=== PATIENT | male | born 1975 | race Caucasian/White ===

== ENCOUNTER 2016-05-05 21:25 | Emergency (ER) | payer BC, OTHER ==
[~2016-05-05] VITALS: Ht 180.3 cm; Wt 85.3 kg
[2016-05-05 21:27] VITALS: Ht 180.3 cm; Wt 85.3 kg
[2016-05-05] MEDS ORDERED: KETOROLAC TROMETHAMINE 30 MG/ML VIAL IV STA (21:44)
[2016-05-05] MEDS ORDERED: SODIUM CHLORIDE 0.9% 1000ML 2,000 ML IV STA (21:44)
[2016-05-05] MEDS ORDERED: BENZONATATE 100MG CAP PO ONE (21:45)
[2016-05-05] MEDS ORDERED: ACETAMINOPHEN 325 MG TAB PO STA (21:45)
--- NOTE | 2016-05-05 21:58 | DIAGNOSTIC IMAGING REPORT ---
CHEST ONE VIEW PORTABLE CLINICAL HISTORY: Cough and fever. COMPARISON STUDY: No previous studies for comparison. FINDINGS: Lung volumes are normal. Lungs are clear. There is no pneumothorax or pleural effusion. Cardiac size is normal. Mediastinal contours are normal. Pulmonary vascularity is normal. IMPRESSION: No acute cardiopulmonary findings. Electronically signed by: Daniel Gamble M.D. 05/05/2016 9:56 PM Dictated Date/Time: 05/05/2016 9:56 PM
[2016-05-05 22:34] LABS: BUN/CREATININE RATIO 11.1 (10-20); CALCIUM 8.5 mg/dl (8.5-10.1); CREATININE 1.2 mg/dl (0.60-1.40)
[2016-05-05] MEDS ORDERED: OSELTAMIVIR PHOSPHATE 75 MG CAP PO STA (22:53)
[2016-05-05 23:01] LABS: BASO % 0.3 %; BASO ABS # 0.02 K/uL (0-0.2); COMPLETE YES; EOS % 0.2 %; HEMATOCRIT 43.1 % (42-52); LYMPH % 12.5 %; LYMPH ABS # 0.72 K/uL (1.2-3.4); MEAN CELL VOLUME 85.9 fL (80-100); MEAN CORPUSCULAR HEMOGLOBIN 29.3 pg (25-34); MEAN CORPUSCULAR HGB CONC 34.1 g/dl (32-36); MEAN PLATELET VOLUME 12.4 fL (7.4-10.4); MONO % 14.4 %; NEUT % 72.6 %; PLATELET COUNT 98 K/uL (130-400); PLT ESTIMATE DECREASED; RED BLOOD COUNT 5.02 M/uL (4.7-6.1); WHITE BLOOD COUNT 5.76 K/uL (4.8-10.8)
[2016-05-05] MEDS ORDERED: NF406 PO (23:16)
[2016-05-05 23:27] VITALS: BP 127/77; PULSE 94; TEMP 38; O2SAT 96
--- NOTE | 2016-05-06 00:29 | EMERGENCY ROOM VISIT NOTE ---
History Report prepared by Rosie: David Carroll Under the Supervision of: Dr. Casey Sosa D.O. First contact with patient: 21:33 Chief Complaint: ILLNESS Stated Complaint: FEVER,CHILLS,STIFFNESS History of Present Illness The patient is a 40 year old male who presents to the Emergency Room with complaints of a persistent fever beginning one day prior to arrival. He currently rates his discomfort as a 5/10 in severity. The patient associates chills, body aches, dry cough, sorethroat, runny nose, and back soreness with today's symptoms. He states his fevers have been as high as 102.5 F, in which, he has been taking Tylenol Cold. his last dose of Tylenol was in the afternoon. The patient notes he may have been around sick contacts. He states he still has his spleen. Pt denies headache, change in vision, chest pain, shortness of breath, rash, abdominal pain, earaches, nausea, vomiting, diarrhea, pain with urination, and melena. Source of History: patient Onset: one day [employer] Position: other (global) Symptom Intensity: 5/10 Quality: other (fever) Timing: other (persistent) Associated Symptoms: + back pain (soreness), + chills, + cough (dry), + fevers, + sorethroat Note: Associated symptoms: body aches, runny nose. Review of Systems See HPI for pertinent positives & negatives. A total of 10 systems reviewed and were otherwise negative. Past Medical & Surgical Medical Problems: (1) No pertinent past medical history Family History Patient reports no known family medical history. Social History Smoking Status: Never Smoker Marital Status: in relationship Occupation Status: employed Current/Historical Medications Scheduled Oseltamivir Phosphate (Tamiflu), 1 CAP PO BID Allergies Coded Allergies: No Known Allergies (Unverified , 05/05/16) Physical Exam Vital Signs Date Time Temp Pulse Resp B/P Pulse Ox O2 Delivery O2 Flow Rate FiO2 05/05/16 23:27 38.0 94 20 127/77 96 05/05/16 22:41 38.0 93 137/74 96 Room Air 05/05/16 21:27 38.6 122 20 129/74 96 Room Air Physical Exam GENERAL: laying in bed, disheveled, mild distress, dry cough EYE EXAM: normal conjunctiva EARS: TMs clear bilaterally OROPHARYNX: no exudate, no erythema, lips, buccal mucosa, and tongue normal and mucous membranes are moist NECK: supple, no nuchal rigidity, no adenopathy, non-tender LUNGS: Faint wheezing in bilateral bases. Normal chest wall mechanics HEART: Tachycardic, no murmurs, S1 normal and S2 normal ABDOMEN: abdomen soft, non-tender, normo-active bowel sounds, no masses, no rebound or guarding. BACK: Diffuse bilateral paraspinal tenderness. Back is symmetrical on inspection and there is no deformity SKIN: no rashes and no bruising UPPER EXTREMITIES: upper extremities are grossly normal. LOWER EXTREMITIES: No pitting edema. Calves equal bilaterally. NEURO EXAM: Normal sensorium, cranial nerves II-XII grossly intact, normal speech, no gross weakness of arms, no gross weakness of legs. Medical Decision & Procedures ER Provider Diagnostic Interpretation: Xray results per the radiologist and my interpretation. Other results have been interpreted by the radiologist and reviewed by me. CHEST ONE VIEW PORTABLE CLINICAL HISTORY: Cough and fever. COMPARISON STUDY: No previous studies for comparison. FINDINGS: Lung volumes are normal. Lungs are clear. There is no pneumothorax or pleural effusion. Cardiac size is normal. Mediastinal contours are normal. Pulmonary vascularity is normal. IMPRESSION: No acute cardiopulmonary findings. Electronically signed by: Daniel Gamble M.D. 05/05/2016 9:56 PM Laboratory Results 05/05/16 21:55 Red Blood Count 5.02, Mean Corpuscular Volume 85.9, Mean Corpuscular Hemoglobin 29.3, Mean Corpuscular Hemoglobin Concent 34.1, Mean Platelet Volume 12.4, Neutrophils (%) (Auto) 72.6, Lymphocytes (%) (Auto) 12.5, Monocytes (%) (Auto) 14.4, Eosinophils (%) (Auto) 0.2, Basophils (%) (Auto) 0.3, Neutrophils # (Auto ) 4.18, Lymphocytes # (Auto) 0.72, Monocytes # (Auto) 0.83, Eosinophils # (Auto ) 0.01, Basophils # (Auto) 0.02 05/05/16 21:55 Test 05/05/16 21:55 White Blood Count 5.76 K/uL (4.8-10.8) Red Blood Count 5.02 M/uL (4.7-6.1) Hemoglobin 14.7 g/dL (14.0-18.0) Hematocrit 43.1 % (42-52) Mean Corpuscular Volume 85.9 fL (80-100) Mean Corpuscular Hemoglobin 29.3 pg (25-34) Mean Corpuscular Hemoglobin Concent 34.1 g/dl (32-36) Platelet Count 98 K/uL (130-400) Mean Platelet Volume 12.4 fL (7.4-10.4) Neutrophils (%) (Auto) 72.6 % Lymphocytes (%) (Auto) 12.5 % Monocytes (%) (Auto) 14.4 % Eosinophils (%) (Auto) 0.2 % Basophils (%) (Auto) 0.3 % Neutrophils # (Auto) 4.18 K/uL (1.4-6.5) Lymphocytes # (Auto) 0.72 K/uL (1.2-3.4) Monocytes # (Auto) 0.83 K/uL (0.11-0.59) Eosinophils # (Auto) 0.01 K/uL (0-0.5) Basophils # (Auto) 0.02 K/uL (0-0.2) RDW Standard Deviation 40.6 fL (36.4-46.3) RDW Coefficient of Variation 12.8 % (11.5-14.5) Immature Granulocyte % (Auto) 0.0 % Immature Granulocyte # (Auto) 0.00 K/uL (0.00-0.02) Platelet Estimate DECREASED Red Blood Cell Morphology Unremarkable Anion Gap 11.0 mmol/L (3-11) Est Creatinine Clear Calc Drug Dose 88.9 ml/min Estimated GFR () 88.4 Estimated GFR (Non- 76.3 BUN/Creatinine Ratio 11.1 (10-20) Calcium Level 8.5 mg/dl (8.5-10.1) Chemistry Specimen Hemolysis Influenza Type A Antigen POS for Influ A (NEG) Influenza Type B Antigen Neg for Influ B (NEG) Laboratory results per my review. Medications Administered Medications (Trade) Dose Ordered Sig/Omar Route Start Time Stop Time Status Last Admin Dose Admin Sodium Chloride (Nss 1000ml) 2,000 ml @ 999 mls/hr Q2H1M STAT IV 05/05/16 21:44 05/05/16 23:44 DC 05/05/16 22:16 999 MLS/HR Ketorolac Tromethamine (Toradol Inj) 30 mg NOW STAT IV 05/05/16 21:44 05/05/16 21:46 DC 05/05/16 22:17 30 MG Benzonatate (Tessalon Perles Cap) 100 mg NOW ONCE PO 05/05/16 21:45 05/05/16 21:46 DC 05/05/16 22:17 100 MG Acetaminophen (Tylenol Tab) 650 mg NOW STAT PO 05/05/16 21:45 05/05/16 21:46 DC 05/05/16 22:17 650 MG Oseltamivir Phosphate (Tamiflu Cap) 75 mg NOW STAT PO 05/05/16 22:53 05/05/16 22:54 DC 05/05/16 23:07 75 MG ED Course ED COURSE: Vital signs were reviewed and showed febrile and tachycardia. The patients medical record was reviewed The above diagnostic studies were performed and reviewed. ED treatments and interventions as stated above. 9: The patient was evaluated in room C10. A complete history and physical examination was performed. 2144: Ordered Toradol Inj 30 mg IV, Sodium Chloride 2,000 ml @ 999 mls/hr IV. 2145: Ordered Tylenol Tab 650 mg PO, Benzonatate 100 mg PO. 2253: ordered Tamiflu Cap 75 mg PO. 2316: Upon reevaluation, the patient is doing well.I discussed my findings with the patient and he understands and agrees with the treatment plan. Based on the patients age, coexisting illnesses, exam and lab findings the decision to treat as an outpatient was made. The patient remained stable while under my care. The patient appeared well at the time of discharge. Medical Decision Differential diagnosis: Etiologies such as viral syndrome, otitis, pharyngitis, pneumonia, influenza, meningitis, urinary tract infection, sepsis, bacteremia, as well as others were entertained. Patient is a 40-year-old male who presents the ER for cough associated with chills and diffuse muscle aches. Patient is completely neurologically intact on exam. Chest x-ray shows no focal trip. Influenza A is positive. CBC was unremarkable. BMP was unremarkable as well. Patient was given Tamiflu. He is given 2 L normal saline along with Toradol and Tylenol. He felt significantly better. Heart rate returned down to the 80s. Fever decreased. Patient was updated bedside and discharged follow-up with his PCP. Discussed with Pt concerning signs and symptoms to watch out for. Pt was instructed to follow up with their PCP and discussed with the patient their option to return to the ED at anytime for persistent or worsening symptoms. The appropriate anticipatory guidance and out-patient management, including indications for return to the emergency department, were explained at length to the patient and understood. Impression Primary Impression: Influenza A Additional Impressions: Fever Tachycardia Thrombocytopenia Scribe Attestation The scribe's documentation has been prepared under my direction and personally reviewed by me in its entirety. I confirm that the note above accurately reflects all work, treatment, procedures, and medical decision making performed by me. Departure Information Dispostion Home / Self-Care Prescriptions Oseltamivir Phosphate (Tamiflu) 75 Mg Cap 1 CAP PO BID for 5 Days, #10 CAP Prov: Casey Sosa, DO 05/05/16 Referrals Mono Saucedo M.D. (PCP) Forms HOME CARE DOCUMENTATION FORM, IMPORTANT VISIT INFORMATION, WORK / SCHOOL INSTRUCTIONS Patient Instructions ED Flu, My [facility] Additional Instructions Please follow up with your primary care doctor with in the next 24 hours. Any worsening of your symptoms, please return to the ED immediately. This includes persistent fevers for greater than 4 days of 100.4 or higher, unable to eat or drink, less than 3 urine outputs per day, confusion, or any other concerning signs or symptoms from your standpoint. Please take the antibiotics as prescribed. Please take Tylenol and/or Motrin as needed for fevers. Problem Qualifiers Additional Impressions: Fever Fever type: unspecified Qualified Codes: R50.9 - Fever, unspecified
== END 2016-05-05 23:28 | disposition home or self-care (01) ==
LOC: C.EDB 21:26 → C.EDC 23:28
DX: J10.1 Influenza due to other identified influenza virus with other respiratory manifestations (principal); R50.9 Fever, unspecified; R00.0 Tachycardia, unspecified; D69.6 Thrombocytopenia, unspecified

== ENCOUNTER → 2017-10-21 | Outpatient (CLI) | payer BC ==
[2017-10-21 16:08] LABS: CHOLESTEROL 155 mg/dl (0-200); GLUCOSE 97 mg/dl (70-99); LDL CHOLESTEROL (DIRECT) 110 mg/dl
== END | disposition home or self-care (01) ==
LOC: C.LABSPEC 15:06
PROVIDERS: ATTEND Internal Medicine
DX: E78.5 Hyperlipidemia, unspecified (principal)